=== PATIENT | male | born 1965 | race Caucasian/White ===

== ENCOUNTER 2017-01-01 06:32 | Day surgery (SDC) | payer BC ==
[~2017-01-01] VITALS: Ht 195.6 cm; Wt 110.9 kg
[~2017-01-01 06:32] MED LIST: LACTATED RINGERS 1,000 ML IV SCH; SODIUM CHLORIDE FLUSH 3 ML SYR IV PRN
[2017-01-01 06:42] VITALS: BP 126/95
[2017-01-01] MEDS ORDERED: PROPOFOL 20 ML IV ONE (07:21)
[2017-01-01] MEDS ORDERED: MIDAZOLAM 2 MG/2 ML (VERSED) VIAL ONE (07:21)
[2017-01-01] MEDS ORDERED: REMIFENTANIL 1 MG (ULTIVA) VIAL IV ONE (07:22)
[2017-01-01 08:13] VITALS: BP 134/80
[2017-01-01 08:29] VITALS: BP 136/91
== END 2017-01-01 08:33 | disposition home or self-care (01) ==
LOC: ASC 06:32
PROVIDERS: ATTEND Surgery
DX: Z12.11 Encounter for screening for malignant neoplasm of colon (principal); Z80.0 Family history of malignant neoplasm of digestive organs
CPT/HCPCS: 45378; J2250; J7120